=== PATIENT | male | born 1970 | race Caucasian/White ===

== ENCOUNTER 2023-12-29 13:01 | Outpatient (AMB) | payer BC, SELFPAY ==
--- NOTE | 2023-12-29 13:05 | MHC.OFFVIS ---
Vital Signs 12/29/23 13:18 Height 5 ft 9 in Weight 197 lb 8 oz BMI 29.2 BP 128/78 Blood Pressure Location Lt brachial Position Sitting Respiration 16 Pulse 52 Pulse Source Pulse Oximeter Pulse Oximetry (%) 98 Oxygen Delivery Method Room Air Intake Visit Reasons: LOW BACK PAIN WITH RADICULOPATHY Intake Note: Patient comes in for initial visit was referred by primary care. Reports pain 01/27. Allergies codeine Allergy (Verified 12/29/23 13:16) Rash Penicillins Allergy (Verified 12/29/23 13:16) Rash HPI Comments Details: Shivam is very pleasant 53 years old gentleman who presents in my office with complains on pain in the lower back with radiation into the right lower extremity all the way to his ankle but not into his toes. Also reports sensation of pins and needles tingling and numbness in the foot. He reports that this pain started 2 years ago. 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 He can not sleep normally he can not do activities of daily living he can not take care of himself but he can not function normally. He is working full-time. He reports that movements aggravate his pain. The pain is most severe in the afternoon at night. The pain is less severe in the middle of the day. In terms of tissue damage he reports his pain as throbbing, stabbing, sharp, pulling, hot burning, hurting, aching sensation. He never had MRI of the lumbar spine but he had an x-ray not available for me today at [facility]. He did not have physical therapy or chiropractic manipulations. He never had any injections. His past medical history significant for headaches fatigue dizziness and fainting history of intermittent chest pain he said that he was investigated by PCP were for chest pain he reports asthma and shortness of breath. He denies any surgery. He denies smoking cigarettes drinking alcohol denies caffeinated beverages but admits to coffee a day he denies recreational drugs. [facility] Surgical History (Updated 12/29/23 @ 13:25 by Stacie Duncan) S/P right inguinal herniorrhaphy S/P left rotator cuff repair S/P left knee arthroscopy S/P right knee arthroscopy Family History (Updated 12/29/23 @ 13:21 by Stacie Duncan) Father Kidney disease Brother Cancer of skin High cholesterol Social History (Updated 12/29/23 @ 13:21 by Stacie Duncan) Comment: alcohol intake occasional Patient Tobacco Use Status: Never used Tobacco Review of Systems Const Reports as per HPI ENT Reports Normal hearing present Card Reports as per HPI Resp Reports as per HPI GI Reports no additional complaints Reports no additional complaints Musc Reports as per HPI Neuro Reports as per HPI, Reports Normal hearing present, Denies Abnormal speech present and Denies Sensory deficit (Neuro) Physical Exam Vital Signs: Last Vital Signs Pulse 52 12/29/23 13:18 Resp 16 12/29/23 13:18 BP 128/78 12/29/23 13:18 Pulse Ox 98 12/29/23 13:18 Oxygen Delivery Method Room Air 12/29/23 13:18 BMI result Body Mass Index 29.2 Const General: no acute distress and well developed Nutritional Appearance: well nourished Orientation/consciousness: patient oriented x3 Eyes General: appearance normal, both eyes and all related structures Pupils: Equal, round and reactive pupils present EOM: EOMs intact bilaterally Neck Neck: Yes full ROM Chest Chest palpation & inspection: normal inspection of the chest Resp Effort & Inspection: normal respiratory effort, able to speak in complete sentences, normal respiratory pattern, no audible wheezes and no cough Cardio Jugular venous distension: no JVD GI Inspection: Yes normal to inspection Back/Spine/Pelvis Other: He is able to stand on bilateral tiptoes in bilateral heels without difficulty. He has difficulty lifting of the 1st toe on the right in separation from the rest of the toes. Achilles reflexes brisk on the right and dull on the left, the patellar reflexes symmetrical and normal. Denies Valsalva maneuver aggravates his pain. Cam test on the right maybe equivocal. SLR is positive on the right. Pelvic compression test is negative for the pain on the right. Lassegue test is positive on the right. Neuro General: patient oriented x3 and gait normal Cranial nerves: Yes CN's II-XII intact bilaterally, Yes Equal, round and reactive pupils present, Yes Normal hearing present and Yes Ability to bilaterally elevate shoulders present Speech: No Abnormal speech present Gait exam (Neuro): Normal gait present Motor exam (neuro): 5/5 motor strength present throughout Sensory Exam: No Sensory deficit (Neuro) Extrem General: No pedal edema Psych Speech and movement: Normal speech and movement present Affect: normal affect Attitude: cooperative Thought process: Normal thought process present Thought content: Normal thought content present Insight: Good insight present (Psych) Judgement: Good judgement present (Psych) Assessment & Plan Assessment & Plan (1) Radiculopathy, lumbar region: Code(s): M54.16 - Radiculopathy, lumbar region Category: Medical (2) Disc degeneration, lumbar: Code(s): M51.36 - Other intervertebral disc degeneration, lumbar region Category: Medical (3) Chronic pain syndrome: Code(s): G89.4 - Chronic pain syndrome Category: Medical Plan Radiculopathy of the lumbar spine is the 1st thing which comes to my mind after collecting history and examining this patient. I will send him for the MRI of the lumbar spine. After evaluation of the MRI I will see him in the office and we will discuss options of the treatment of the radiculopathy depending on the severity of the MRI findings. Orders: Orders MR lumbar spine wo con Today G89.4 - Chronic pain syndrome, M51.36 - Other intervertebral disc degeneration, lumbar region, M54.16 - Radiculopathy, lumbar region Patient Instructions: I here by testify that I spent 45 minutes in conversation with this patient as well as planning his care ordering appropriate studies and organizing this note. Coding Level of Care Code New Pt Level 4 (98032) Diagnoses Radiculopathy, lumbar region M54.16 Disc degeneration, lumbar M51.36 Chronic pain syndrome G89.4
[2023-12-29 13:18] VITALS: BP 128/78; PULSE 52; RESP 16; O2SAT 98; BMI 29.2
== END 2023-12-29 14:18 | disposition home or self-care (01) ==
PROVIDERS: PCP Nurse Practitioner Family; Referring Provider Nurse Practitioner Family; Visit Provider Anesthesiology
DX: M54.16 Radiculopathy, lumbar region (principal); M51.36 Other intervertebral disc degeneration, lumbar region; G89.4 Chronic pain syndrome
CPT/HCPCS: 99204

== ENCOUNTER → 2023-12-29 13:01 | Outpatient (BNVA) | payer BC, SELFPAY | PROVIDERS: PCP Nurse Practitioner Family; Referring Provider Nurse Practitioner Family; Visit Provider Anesthesiology ==

== ENCOUNTER 2024-01-31 07:26 | Outpatient (REF) | payer BC, SELFPAY ==
--- NOTE | ~2024-01-31 | MR_ITS ---
MRI OF THE LUMBAR SPINE WITHOUT CONTRAST CLINICAL INFORMATION: Chronic pain syndrome. COMPARISON: None available. TECHNIQUE: Multiplanar multisequence MR imaging of the lumbar spine obtained without contrast. FINDINGS: There is transitional anatomy. For the purposes of this report, there are 5 nonrib-bearing lumbar-type vertebral bodies and L5 is sacralized, showing rudimentary disc with S1 and pseudoarticulations with the sacrum bilaterally. Please correlate with plain films prior to any percutaneous or surgical intervention. There is disc desiccation and moderate disc volume loss at L1-L2 and L4-L5. Modic type I endplate signal changes on the right side at L4-L5. No additional bone marrow edema. No acute fractures. Conus terminates at the T12-L1 level. Simple right renal cyst for which no further imaging follow-up is warranted. L1-L2: Diffuse annular disc bulge and mild bilateral facet arthropathy. No central canal stenosis. Mild foraminal encroachment bilaterally. L2-L3: Diffuse annular disc bulge and moderate bilateral facet arthropathy and ligamentum flavum thickening. No central canal stenosis. Mild foraminal encroachment bilaterally. L3-L4: Diffuse annular disc bulge and moderate bilateral facet arthropathy and ligamentum flavum thickening. No central canal stenosis. Mild foraminal encroachment bilaterally. L4-L5: There is grade 1 retrolisthesis. Diffuse annular disc bulge that is in part disc osteophyte and severe bilateral facet arthropathy and ligamentum flavum thickening. Findings in concert result in bilateral subarticular zone stenosis with mild mass effect on the traversing L5 nerve roots bilaterally and the right lateral disc osteophyte protrusion results in moderate right-sided foraminal stenosis, likely contacting the extraforaminal right L4 nerve root. L5-S1: Rudimentary disc. Hypertrophic degenerative changes across the L5-S1 pseudoarticulations contact the overlying extraforaminal nerve roots bilaterally. There is no central canal stenosis. MR/MR lumbar spine wo con IMPRESSION: * There is transitional anatomy. For the purposes of this report, there are 5 nonrib-bearing lumbar-type vertebral bodies and L5 is sacralized, sharing a rudimentary disc with S1 and pseudoarticulations with the sacrum bilaterally. Please correlate with plain films prior to any percutaneous or surgical intervention. * At L4-L5, grade 1 retrolisthesis and multifactorial degenerative changes result in bilateral subarticular zone stenosis with mild mass effect on the traversing L5 nerve roots bilaterally and a right lateral disc osteophyte protrusion results in moderate right-sided foraminal stenosis, likely contacting the extraforaminal right L4 nerve root. Modic type I endplate signal changes at this level on the right side. * At L5-S1, hypertrophic degenerative changes across the L5-S1 pseudoarticulations contact the overlying extraforaminal nerve roots bilaterally. Electronically signed by: Christian Ron MD 02/13/2024 12:51 PM EDT
== END 2024-01-31 07:27 | disposition home or self-care (01) ==
LOC: HO.MRI 07:26
PROVIDERS: PCP Internal Medicine; Visit Provider Anesthesiology
DX: M51.36 Other intervertebral disc degeneration, lumbar region (principal); M54.16 Radiculopathy, lumbar region; G89.4 Chronic pain syndrome
CPT/HCPCS: 72148

== ENCOUNTER 2024-02-21 14:03 | Outpatient (AMB) | payer BC, SELFPAY ==
[2024-02-21 14:17] VITALS: BP 138/75; PULSE 61; O2SAT 98; BMI 28.5
--- NOTE | 2024-02-21 14:17 | A.OFFVIS_ITS ---
Vital Signs 02/21/24 14:17 Height 5 ft 9 in Weight 193 lb BMI 28.5 BP 138/75 Blood Pressure Location Lt brachial Position Sitting Pulse 61 Pulse Source Pulse Oximeter Pulse Oximetry (%) 98 Oxygen Delivery Method Room Air Intake Visit Reasons: MRI results f/u Allergies codeine Allergy (Verified 02/21/24 14:18) Rash Penicillins Allergy (Verified 02/21/24 14:18) Rash Medication List - Last Reconciled 02/21/24 by Merlyn Saha naproxen (EC-Naproxen) 500 mg PO BID PRN HPI Comments Details: Patient presents back to the office today for follow-up, review of recent MRI MRI reviewed, results as per below Patient continues with 7/10 back pain with radiation down the right leg to the level of the ankle. Denies red flag symptoms including new loss of bowel, bladder or saddle anesthesia Has been attending physical therapy without improvement of his symptoms Reports over the weekend he was working in the lawn and exacerbated the pain. Since then it has been more bothersome. Continues with Motrin as needed without improvement of his symptoms Denies new medications, allergies or medical history Prior: Shivam is very pleasant 53 years old gentleman who presents in my office with complains on pain in the lower back with radiation into the right lower extremity all the way to his ankle but not into his toes. Also reports sensation of pins and needles tingling and numbness in the foot. He reports that this pain started 2 years ago. 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 He can not sleep normally he can not do activities of daily living he can not take care of himself but he can not function normally. He is working full-time. He reports that movements aggravate his pain. The pain is most severe in the afternoon at night. The pain is less severe in the middle of the day. In terms of tissue damage he reports his pain as throbbing, stabbing, sharp, pulling, hot burning, hurting, aching sensation. He never had MRI of the lumbar spine but he had an x-ray not available for me today at [facility]. He did not have physical therapy or chiropractic manipulations. He never had any injections. His past medical history significant for headaches fatigue dizziness and fainting history of intermittent chest pain he said that he was investigated by PCP were for chest pain he reports asthma and shortness of breath. He denies any surgery. He denies smoking cigarettes drinking alcohol denies caffeinated beverages but admits to coffee a day he denies recreational drugs. [facility] Surgical History (Updated 12/29/23 @ 13:25 by Stacie Duncan) S/P right inguinal herniorrhaphy S/P left rotator cuff repair S/P left knee arthroscopy S/P right knee arthroscopy Family History (Updated 12/29/23 @ 13:21 by Stacie Duncan) Father Kidney disease Brother Cancer of skin High cholesterol Social History (Updated 12/29/23 @ 13:21 by Stacie Duncan) Comment: alcohol intake occasional Patient Tobacco Use Status: Never used Tobacco Review of Systems Const All systems reviewed & are unremarkable except as noted in HPI and below Physical Exam Vital Signs: Last Vital Signs Pulse 61 02/21/24 14:17 BP 138/75 02/21/24 14:17 Pulse Ox 98 02/21/24 14:17 Oxygen Delivery Method Room Air 02/21/24 14:17 BMI result Body Mass Index 28.5 General: awake, alert, oriented. Answers questions appropriately. Fully engaged in examination. Skin: warm, dry, intact HEENT: Normocephalic. Hearing intact. Cardiac: External chest normal in appearance. Respiratory: No cough, audible wheezing or stridor. Abdomen: without gross distension. MS: No obvious swelling or deformities. Able to stand on bilateral tiptoes and bilateral heels.? Able to transition from sit to stand unassisted. Ambulates with bilaterally normal heel strike and toe off SLR positive on the right Negative footdrop, negative clonus Neurological: Oriented to person, place, time and situation. Thought process intact. No gait abnormalities appreciated. Psychiatric: Appropriate mood and affect. Good judgment and insight. Results Reviewed Results Reviewed: 01/31/24 MRI OF THE LUMBAR SPINE WITHOUT CONTRAST FINDINGS: There is transitional anatomy. For the purposes of this report, there are 5 nonrib-bearing lumbar-type vertebral bodies and L5 is sacralized, showing rudimentary disc with S1 and pseudoarticulations with the sacrum bilaterally. Please correlate with plain films prior to any percutaneous or surgical intervention. There is disc desiccation and moderate disc volume loss at L1-L2 and L4-L5. Modic type I endplate signal changes on the right side at L4-L5. No additional bone marrow edema. No acute fractures. Conus terminates at the T12-L1 level. Simple right renal cyst for which no further imaging follow-up is warranted. L1-L2: Diffuse annular disc bulge and mild bilateral facet arthropathy. No central canal stenosis. Mild foraminal encroachment bilaterally. L2-L3: Diffuse annular disc bulge and moderate bilateral facet arthropathy and ligamentum flavum thickening. No central canal stenosis. Mild foraminal encroachment bilaterally. L3-L4: Diffuse annular disc bulge and moderate bilateral facet arthropathy and ligamentum flavum thickening. No central canal stenosis. Mild foraminal encroachment bilaterally. L4-L5: There is grade 1 retrolisthesis. Diffuse annular disc bulge that is in part disc osteophyte and severe bilateral facet arthropathy and ligamentum flavum thickening. Findings in concert result in bilateral subarticular zone stenosis with mild mass effect on the traversing L5 nerve roots bilaterally and the right lateral disc osteophyte protrusion results in moderate right-sided foraminal stenosis, likely contacting the extraforaminal right L4 nerve root. L5-S1: Rudimentary disc. Hypertrophic degenerative changes across the L5-S1 pseudoarticulations contact the overlying extraforaminal nerve roots bilaterally. There is no central canal stenosis. IMPRESSION: * There is transitional anatomy. For the purposes of this report, there are 5 nonrib-bearing lumbar-type vertebral bodies and L5 is sacralized, sharing a rudimentary disc with S1 and pseudoarticulations with the sacrum bilaterally. Please correlate with plain films prior to any percutaneous or surgical intervention. * At L4-L5, grade 1 retrolisthesis and multifactorial degenerative changes result in bilateral subarticular zone stenosis with mild mass effect on the traversing L5 nerve roots bilaterally and a right lateral disc osteophyte protrusion results in moderate right-sided foraminal stenosis, likely contacting the extraforaminal right L4 nerve root. Modic type I endplate signal changes at this level on the right side. * At L5-S1, hypertrophic degenerative changes across the L5-S1 pseudoarticulations contact the overlying extraforaminal nerve roots bilaterally. Assessment & Plan Assessment & Plan (1) Radiculopathy, lumbar region: Code(s): M54.16 - Radiculopathy, lumbar region Category: Medical (2) Disc degeneration, lumbar: Code(s): M51.36 - Other intervertebral disc degeneration, lumbar region Category: Medical (3) Chronic pain syndrome: Code(s): G89.4 - Chronic pain syndrome Category: Medical Plan Shivam is a very pleasant 53-year-old male who presented to the office today for evaluation management of his right lower back pain History, physical exam and provocative testing consistent with right lumbar radiculopathy. MRI was reviewed, results as per above Patient has exhausted greater than 6 months of conservative therapy including PT, home exercise program, nonsteroidal anti-inflammatory medications, rest Discussed options for treatment including diagnostic interventional testing, epidural steroid injections, peripheral nerve stimulation with Sprint, RFA and more permanent neuromodulation. Will schedule for fluoroscopy guided right L4/L5 transforaminal epidural steroid injection with local anesthetic Will send prednisone burst to help with current exacerbation while waiting for insurance approval New prescription for methocarbamol 500 mg p.o. t.i.d. sent. Patient advised on cautions for use. All questions and concerns have been answered and patient agrees with the plan. Follow up after injections, sooner if needed. Medications: New methocarbamol No driving while taking this medication. Do no take with alcohol or other NEIGHBORHOOD AIDE Depressants 500 mg PO TID PRN 90 tabs 1RF muscle spasm prednisone 40 mg (2 x 20 mg) PO DAILY 12 tabs 0RF Coding Level of Care Code Est Pt Level 4 (30981) Complex EM visit Add On G2211 Diagnoses Radiculopathy, lumbar region M54.16 Disc degeneration, lumbar M51.36 Chronic pain syndrome G89.4
== END 2024-02-21 14:59 | disposition home or self-care (01) ==
PROVIDERS: PCP Internal Medicine; Visit Provider Registered Nurse Emergency
DX: M54.16 Radiculopathy, lumbar region (principal); M51.36 Other intervertebral disc degeneration, lumbar region; G89.4 Chronic pain syndrome
CPT/HCPCS: 99214

== ENCOUNTER → 2024-02-21 14:03 | Outpatient (BNVA) | payer BC, SELFPAY | PROVIDERS: PCP Internal Medicine; Visit Provider Registered Nurse Emergency ==

== ENCOUNTER 2024-04-10 06:03 | Outpatient (REF) | payer BC, SELFPAY | END 2024-04-10 06:04 | disposition home or self-care (01) | LOC: CF 06:03 | PROVIDERS: Visit Provider Anesthesiology | DX: M54.16 Radiculopathy, lumbar region (principal); G89.4 Chronic pain syndrome | CPT/HCPCS: 64483; 64484; J2003; J3301; Q9967 ==

== ENCOUNTER 2024-04-10 07:10 | Outpatient (AMB) | payer BC, SELFPAY ==
[2024-04-10 07:18] VITALS: BP 128/78; PULSE 63; O2SAT 98; BMI 28.8
--- NOTE | 2024-04-10 07:18 | A.OFFVIS_ITS ---
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 Accompanied by: Self / Same As Patient Allergies codeine Allergy (Verified 04/10/24 07:33) Rash Penicillins Allergy (Verified 04/10/24 07:33) Rash PFSH Surgical History (Updated 12/29/23 @ 13:25 by Stacie Duncan) S/P right inguinal herniorrhaphy S/P left rotator cuff repair S/P left knee arthroscopy S/P right knee arthroscopy Family History (Updated 12/29/23 @ 13:21 by Stacie Duncan) Father Kidney disease Brother Cancer of skin High cholesterol Social History (Updated 12/29/23 @ 13:21 by Stacie Duncan) Comment: alcohol intake occasional Patient Tobacco Use Status: Never used Tobacco Physical Exam Vital Signs: Last Vital Signs Pulse 58 04/10/24 08:11 Resp 16 04/10/24 08:11 BP 125/70 04/10/24 08:11 Pulse Ox 99 04/10/24 08:11 Oxygen Delivery Method Room Air 04/10/24 08:11 BMI result Body Mass Index 28.8 Results Reviewed Results Reviewed: 01/31/24 MRI OF THE LUMBAR SPINE WITHOUT CONTRAST FINDINGS: There is transitional anatomy. For the purposes of this report, there are 5 nonrib-bearing lumbar-type vertebral bodies and L5 is sacralized, showing rudimentary disc with S1 and pseudoarticulations with the sacrum bilaterally. Please correlate with plain films prior to any percutaneous or surgical intervention. There is disc desiccation and moderate disc volume loss at L1-L2 and L4-L5. Modic type I endplate signal changes on the right side at L4-L5. No additional bone marrow edema. No acute fractures. Conus terminates at the T12-L1 level. Simple right renal cyst for which no further imaging follow-up is warranted. L1-L2: Diffuse annular disc bulge and mild bilateral facet arthropathy. No central canal stenosis. Mild foraminal encroachment bilaterally. L2-L3: Diffuse annular disc bulge and moderate bilateral facet arthropathy and ligamentum flavum thickening. No central canal stenosis. Mild foraminal encroachment bilaterally. L3-L4: Diffuse annular disc bulge and moderate bilateral facet arthropathy and ligamentum flavum thickening. No central canal stenosis. Mild foraminal encroachment bilaterally. L4-L5: There is grade 1 retrolisthesis. Diffuse annular disc bulge that is in part disc osteophyte and severe bilateral facet arthropathy and ligamentum flavum thickening. Findings in concert result in bilateral subarticular zone stenosis with mild mass effect on the traversing L5 nerve roots bilaterally and the right lateral disc osteophyte protrusion results in moderate right-sided foraminal stenosis, likely contacting the extraforaminal right L4 nerve root. L5-S1: Rudimentary disc. Hypertrophic degenerative changes across the L5-S1 pseudoarticulations contact the overlying extraforaminal nerve roots bilaterally. There is no central canal stenosis. IMPRESSION: * There is transitional anatomy. For the purposes of this report, there are 5 nonrib-bearing lumbar-type vertebral bodies and L5 is sacralized, sharing a rudimentary disc with S1 and pseudoarticulations with the sacrum bilaterally. Please correlate with plain films prior to any percutaneous or surgical intervention. * At L4-L5, grade 1 retrolisthesis and multifactorial degenerative changes result in bilateral subarticular zone stenosis with mild mass effect on the traversing L5 nerve roots bilaterally and a right lateral disc osteophyte protrusion results in moderate right-sided foraminal stenosis, likely contacting the extraforaminal right L4 nerve root. Modic type I endplate signal changes at this level on the right side. * At L5-S1, hypertrophic degenerative changes across the L5-S1 pseudoarticulations contact the overlying extraforaminal nerve roots bilaterally. Assessment & Plan Assessment & Plan (1) Radiculopathy, lumbar region: Code(s): M54.16 - Radiculopathy, lumbar region Category: Medical (2) Disc degeneration, lumbar: Code(s): M51.36 - Other intervertebral disc degeneration, lumbar region Category: Medical (3) Chronic pain syndrome: Code(s): G89.4 - Chronic pain syndrome Category: Medical Plan: Transforaminal right L4-5 epidural steroid injection Informed consent was thoroughly explained to the patient before the procedure.? The patient came to the operating room.? He was positioned prone on operating table with a pillow under his abdomen.? Time-out was performed delineating correct site and side of the procedure, nature of the injection, name and date of of the patient. The lower back of the patient was prepped with ChloraPrep and draped with sterile utility towels.? C-arm was brought over the operating field, transitional anatomy was noted, the L4 vertebra was located county down from the 1st [id number] vertebra, and after the sq picture of L4 vertebra was demonstrated on the screen.? The right side was chosen as the side of the injection.? Tilting machine ipsilateral to the right at the level of L4 the most prominent picture of the left pedicle was obtained on the screen.? 3 mm below the level of the lowest point of the pedicle projection to the skin small amount of lidocaine 1% 3-4 cc was injected to anesthetize the skin.? After that 5 in 22 gauge Quincke point needle was inserted through the skin wheal and was advanced to were the L4-5 foramina on anterior posterior , lateral and oblique views intermittently.? When needle entered foramina injection of the contrast performed demonstrating epidural and perineural spread of the contrast. No intrathecal and no intravascular spread of the contrast was noted on the screen. No intravascular nor intrathecal spread of the contrast was noted. After that preservative-free lidocaine 1% 3 mL mixed with Kenalog 40 mg was injected into the needle. Upon completion of the injection needle was withdrawn sterile Band- Aids were applied Patient tolerated procedure well he was taken outside of the operating room where he recovered uneventfully.? Plan Shivam is a very pleasant 53-year-old male who presented to the office today for evaluation management of his right lower back pain History, physical exam and provocative testing consistent with right lumbar radiculopathy. MRI was reviewed, results as per above Patient has exhausted greater than 6 months of conservative therapy including PT, home exercise program, nonsteroidal anti-inflammatory medications, rest Discussed options for treatment including diagnostic interventional testing, epidural steroid injections, peripheral nerve stimulation with Sprint, RFA and more permanent neuromodulation. Will schedule for fluoroscopy guided right L4/L5 transforaminal epidural steroid injection with local anesthetic Will send prednisone burst to help with current exacerbation while waiting for insurance approval New prescription for methocarbamol 500 mg p.o. t.i.d. sent. Patient advised on cautions for use. All questions and concerns have been answered and patient agrees with the plan. Follow up after injections, sooner if needed. Orders: Orders FL guidance in treatment room Today M54.16 - Radiculopathy, lumbar region Coding Level of Care Code Procedure Only Diagnoses Radiculopathy, lumbar region M54.16 Disc degeneration, lumbar M51.36 Chronic pain syndrome G89.4
[2024-04-10 08:11] VITALS: BP 125/70; PULSE 58; RESP 16; O2SAT 99
== END 2024-04-10 08:04 | disposition home or self-care (01) ==
LOC: HO.PMCPRC 07:10
PROVIDERS: PCP Internal Medicine; Visit Provider Anesthesiology
DX: M54.16 Radiculopathy, lumbar region (principal); M51.369 Other intervertebral disc degeneration, lumbar region without mention of lumbar back pain or lower extremity pain; G89.4 Chronic pain syndrome
CPT/HCPCS: 64483; 64484

== ENCOUNTER 2024-05-04 12:48 | Outpatient (REF) | payer BC, SELFPAY | END 2024-05-04 12:49 | disposition home or self-care (01) | LOC: HO.XRAY 12:48 | PROVIDERS: PCP Internal Medicine; Visit Provider Registered Nurse Emergency | DX: M51.360 Other intervertebral disc degeneration, lumbar region with discogenic back pain only (principal); M54.16 Radiculopathy, lumbar region | CPT/HCPCS: 72114 ==

== ENCOUNTER 2024-05-04 12:48 | Outpatient (AMB) | payer BC, SELFPAY ==
[2024-05-04 13:06] VITALS: BP 133/80; PULSE 66; O2SAT 98; BMI 28.8
--- NOTE | 2024-05-04 13:06 | MHC.OFFVIS ---
Vital Signs 05/04/24 13:06 Height 5 ft 9 in Weight 195 lb BMI 28.8 BP 133/80 Blood Pressure Location Lt brachial Position Sitting Pulse 66 Pulse Source Pulse Oximeter Pulse Oximetry (%) 98 Oxygen Delivery Method Room Air Intake Visit Reasons: RIGHT L4, L5 TFESI Allergies codeine Allergy (Verified 05/04/24 13:06) Rash Penicillins Allergy (Verified 05/04/24 13:06) Rash Medication List - Last Reconciled 05/04/24 by Merlyn Saha methocarbamol 500 mg PO TID PRN naproxen (EC-Naproxen) 500 mg PO BID PRN HPI Comments Details: Patient presents back to the office today for follow-up, 1 month status post right L4-5 transforaminal epidural steroid injection He reports 30% improvement in pain, functional mobility since the injection. States no longer having discomfort in his right ankle/Achilles. Continues with right lower back pain radiating down to the calf. Endorses continued tightness in the right hamstring. Taking naproxen and methocarbamol with minimal improvement Pain today is rated as a 6/10 Prior: Patient presents back to the office today for follow-up, review of recent MRI MRI reviewed, results as per below Patient continues with 7/10 back pain with radiation down the right leg to the level of the ankle. Denies red flag symptoms including new loss of bowel, bladder or saddle anesthesia Has been attending physical therapy without improvement of his symptoms Reports over the weekend he was working in the lawn and exacerbated the pain. Since then it has been more bothersome. Continues with Motrin as needed without improvement of his symptoms Denies new medications, allergies or medical history Prior: Shivam is very pleasant 53 years old gentleman who presents in my office with complains on pain in the lower back with radiation into the right lower extremity all the way to his ankle but not into his toes. Also reports sensation of pins and needles tingling and numbness in the foot. He reports that this pain started 2 years ago. 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 man. He can not sleep normally he can not do activities of daily living he can not take care of himself but he can not function normally. He is working full-time. He reports that movements aggravate his pain. The pain is most severe in the afternoon at night. The pain is less severe in the middle of the day. In terms of tissue damage he reports his pain as throbbing, stabbing, sharp, pulling, hot burning, hurting, aching sensation. He never had MRI of the lumbar spine but he had an x-ray not available for me today at [facility]. He did not have physical therapy or chiropractic manipulations. He never had any injections. His past medical history significant for headaches fatigue dizziness and fainting history of intermittent chest pain he said that he was investigated by PCP were for chest pain he reports asthma and shortness of breath. He denies any surgery. He denies smoking cigarettes drinking alcohol denies caffeinated beverages but admits to coffee a day he denies recreational drugs. [facility] Surgical History (Updated 12/29/23 @ 13:25 by Stacie Duncan) S/P right inguinal herniorrhaphy S/P left rotator cuff repair S/P left knee arthroscopy S/P right knee arthroscopy Family History (Updated 12/29/23 @ 13:21 by Stacie Duncan) Father Kidney disease Brother Cancer of skin High cholesterol Social History (Updated 12/29/23 @ 13:21 by Stacie Duncan) Comment: alcohol intake occasional Patient Tobacco Use Status: Never used Tobacco Review of Systems Const All systems reviewed & are unremarkable except as noted in HPI and below Physical Exam Vital Signs: Last Vital Signs Pulse 66 05/04/24 13:06 BP 133/80 05/04/24 13:06 Pulse Ox 98 05/04/24 13:06 Oxygen Delivery Method Room Air 05/04/24 13:06 BMI result Body Mass Index 28.8 General: awake, alert, oriented. Answers questions appropriately. Fully engaged in examination. Skin: warm, dry, intact HEENT: Normocephalic. Hearing intact. Cardiac: External chest normal in appearance. Respiratory: No cough, audible wheezing or stridor. Abdomen: without gross distension. MS: No obvious swelling or deformities. Able to stand on bilateral tiptoes and bilateral heels.? Able to transition from sit to stand unassisted. Ambulates with bilaterally normal heel strike and toe off SLR positive on the right. Negative footdrop, negative clonus Tenderness over right lumbar vertebrae and paraspinal muscles. Nontender over PSIS No pain with internal/external rotation of the right hip Neurological: Oriented to person, place, time and situation. Thought process intact. No gait abnormalities appreciated. Psychiatric: Appropriate mood and affect. Good judgment and insight. Results Reviewed Results Reviewed: 01/31/24 MRI OF THE LUMBAR SPINE WITHOUT CONTRAST FINDINGS: There is transitional anatomy. For the purposes of this report, there are 5 nonrib-bearing lumbar-type vertebral bodies and L5 is sacralized, showing rudimentary disc with S1 and pseudoarticulations with the sacrum bilaterally. Please correlate with plain films prior to any percutaneous or surgical intervention. There is disc desiccation and moderate disc volume loss at L1-L2 and L4-L5. Modic type I endplate signal changes on the right side at L4-L5. No additional bone marrow edema. No acute fractures. Conus terminates at the T12-L1 level. Simple right renal cyst for which no further imaging follow-up is warranted. L1-L2: Diffuse annular disc bulge and mild bilateral facet arthropathy. No central canal stenosis. Mild foraminal encroachment bilaterally. L2-L3: Diffuse annular disc bulge and moderate bilateral facet arthropathy and ligamentum flavum thickening. No central canal stenosis. Mild foraminal encroachment bilaterally. L3-L4: Diffuse annular disc bulge and moderate bilateral facet arthropathy and ligamentum flavum thickening. No central canal stenosis. Mild foraminal encroachment bilaterally. L4-L5: There is grade 1 retrolisthesis. Diffuse annular disc bulge that is in part disc osteophyte and severe bilateral facet arthropathy and ligamentum flavum thickening. Findings in concert result in bilateral subarticular zone stenosis with mild mass effect on the traversing L5 nerve roots bilaterally and the right lateral disc osteophyte protrusion results in moderate right-sided foraminal stenosis, likely contacting the extraforaminal right L4 nerve root. L5-S1: Rudimentary disc. Hypertrophic degenerative changes across the L5-S1 pseudoarticulations contact the overlying extraforaminal nerve roots bilaterally. There is no central canal stenosis. IMPRESSION: * There is transitional anatomy. For the purposes of this report, there are 5 nonrib-bearing lumbar-type vertebral bodies and L5 is sacralized, sharing a rudimentary disc with S1 and pseudoarticulations with the sacrum bilaterally. Please correlate with plain films prior to any percutaneous or surgical intervention. * At L4-L5, grade 1 retrolisthesis and multifactorial degenerative changes result in bilateral subarticular zone stenosis with mild mass effect on the traversing L5 nerve roots bilaterally and a right lateral disc osteophyte protrusion results in moderate right-sided foraminal stenosis, likely contacting the extraforaminal right L4 nerve root. Modic type I endplate signal changes at this level on the right side. * At L5-S1, hypertrophic degenerative changes across the L5-S1 pseudoarticulations contact the overlying extraforaminal nerve roots bilaterally. Assessment & Plan Assessment & Plan (1) Disc degeneration, lumbar: Code(s): M51.36 - Other intervertebral disc degeneration, lumbar region Category: Medical (2) Radiculopathy, lumbar region: Code(s): M54.16 - Radiculopathy, lumbar region Category: Medical (3) Chronic pain syndrome: Code(s): G89.4 - Chronic pain syndrome Category: Medical Plan Patient presents back to the office today for follow-up, 1 month status post right L4-5 transforaminal epidural steroid injection He reports 30% improvement in symptoms and pain after the injection X-ray lumbar spine with bending views ordered. Referral placed for neurosurgery evaluation. Continue with naproxen and methocarbamol as prescribed. Patient declined refills today, will reach out to the office when needed. All questions and concerns have been answered and patient agrees with the plan. Follow up after neurosurgical evaluation, sooner if needed. Orders: Orders XR lumbar spine 6V w bending Today M51.36 - Other intervertebral disc degeneration, lumbar region, M54.16 - Radiculopathy, lumbar region Referrals Neuro Spine Referral M51.36 - Other intervertebral disc degeneration, lumbar region, M54.16 - Radiculopathy, lumbar region Coding Level of Care Code Est Pt Level 3 (61819) Complex EM visit Add On G2211 Diagnoses Disc degeneration, lumbar M51.36 Radiculopathy, lumbar region M54.16 Chronic pain syndrome G89.4
== END 2024-05-04 13:22 | disposition home or self-care (01) ==
PROVIDERS: PCP Internal Medicine; Visit Provider Registered Nurse Emergency
DX: M51.369 Other intervertebral disc degeneration, lumbar region without mention of lumbar back pain or lower extremity pain (principal); M54.16 Radiculopathy, lumbar region; G89.4 Chronic pain syndrome
CPT/HCPCS: 99213

== ENCOUNTER 2024-05-21 10:48 | Outpatient (AMB) | payer BC, SELFPAY ==
--- NOTE | 2024-05-21 10:51 | HO.SPINEOV ---
Vital Signs 05/21/24 10:59 Height 5 ft 8 in Weight 190 lb BMI 28.9 Intake Visit Reasons: LBP Intake Note: Mr. Church is here today c/o Low back pain. Vp Delivery Required: No Allergies codeine Allergy (Verified 05/04/24 13:06) Rash Penicillins Allergy (Verified 05/04/24 13:06) Rash Physical Exam Vital Signs: BMI result Body Mass Index 28.9 Assessment & Plan Assessment & Plan (1) Spondylolisthesis: Code(s): M43.10 - Spondylolisthesis, site unspecified Category: Medical Plan Dear VIRGINIA Haynes, Thank you for referring Shivam to our office today. 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 He states that his low back pain is much worse than his right leg pain. He reports that he has had low back pain for the last 2 years, and denies any known inciting incident. His right leg pain is newer, occurring roughly 8 months ago, also without any inciting incident. When describing his right leg pain he runs his hand over the posterior aspect of his buttocks, down his posterior thigh, then into the posterior calf. He reports some numbness and tingling over his posterior right hip. He reports that his pain is worse with sitting and lying down, but is relieved by standing and walking. He has attempted physical therapy for this pain, has had L4-5 epidural steroid injections completed by our colleagues in pain management for this pain. He has also attempted [id number] remedies including Tylenol, naproxen, and pain gel/creams. He is currently taking naproxen and muscle relaxers in an effort to mitigate the pain. Social hx: The patient does not smoke, reports no substance use. Medications: Methocarbamol, naproxen. Allergies: Codeine, penicillin. Physical exam: The patient has 5/5 strength in his upper and lower extremities. His reflexes are 2+ intact. He has no significant sensational deficits on exam. He ambulates well and rises from a seated position without difficulty. No issues getting up onto the exam table. Nonantalgic gait. (-) bilateral straight leg raise, (-) Thomas's, (-) clonus. Imaging review: MRI of the lumbar spine completed here at [facility] shows a slight grade 1 spondylolisthesis at what we would refer to as L5-S1 (I believe is referred to as L4-5 in the radiology report, however it appears that part of the sacrum just has a slightly larger disc than normal). This slight listhesis appears to be causing bilateral foraminal stenosis that is moderate-severe nature. This is accompanied by disc degeneration at this level. Flexion/extension x-rays do not appear to show any worsening instability. Impression: Shivam is a pleasant 53-year-old male who comes in today with a chief complaint of low back pain and shooting pains down his right lower extremity in a classic S1 distribution. He has a slight listhesis that appears worse with lying flat (on MRI) than it does with standing (x-rays). This would correlate well with his disclosed pain symptoms based on positional changes. We discussed the possible surgical interventions that could be undertaken in order to correct this listhesis and nerve compression. He does not feel he is at the point where his pain is severe enough to warrant surgery. I agreed with him and I advised him to continue following up with our colleagues in pain management for a subsequent injections. He is welcome to make a follow-up appointment with our office in the future if his pain worsens or does not respond well to injections to discuss surgical intervention. Thank you for allowing us to care for your patient. The total time spent with this visit with this patient was 45 minutes reviewing history, physical exam, MRI imaging review, and implementation of treatment plan or further diagnostic testing. James Mcgee MD,PhD [facility] Coding Level of Care Code New Pt Level 4 (32570) Diagnoses Spondylolisthesis M43.10
[2024-05-21 10:59] VITALS: BMI 28.9
== END 2024-05-21 11:36 | disposition home or self-care (01) ==
PROVIDERS: PCP Internal Medicine; Referring Provider Registered Nurse Emergency; Visit Provider Physician Assistant
DX: M43.10 Spondylolisthesis, site unspecified (principal)
CPT/HCPCS: 99204

== ENCOUNTER → 2024-05-21 10:48 | Outpatient (BNVA) | payer BC, SELFPAY | PROVIDERS: PCP Internal Medicine; Referring Provider Registered Nurse Emergency; Visit Provider Physician Assistant ==

== ENCOUNTER 2024-05-31 12:53 | Outpatient (AMB) | payer BC, SELFPAY ==
--- NOTE | 2024-05-31 13:02 | A.OFFVIS_ITS ---
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 Recently evaluated by neuro spine, visit note was reviewed. They discussed surgery but ultimately decided that now was not the right time. He was referred back here for repeat L4-5 epidural steroid injection. He continues with right lower back pain with radiation down the right leg to the ankle. Pain today is rated as a 7/10, constant and worse with activity Has been taking naproxen with some relief. Reports methocarbamol has been giving him nightmares so he stopped taking it. Prior: Patient presents back to the office today for follow-up, 1 month status post right L4-5 transforaminal epidural steroid injection He reports 30% improvement in pain, functional mobility since the injection. States no longer having discomfort in his right ankle/Achilles. Continues with right lower back pain radiating down to the calf. Endorses continued tightness in the right hamstring. Taking naproxen and methocarbamol with minimal improvement Pain today is rated as a 6/10 Prior: Patient presents back to the office today for follow-up, review of recent MRI MRI reviewed, results as per below Patient continues with 7/10 back pain with radiation down the right leg to the level of the ankle. Denies red flag symptoms including new loss of bowel, bladder or saddle anesthesia Has been attending physical therapy without improvement of his symptoms Reports over the weekend he was working in the lawn and exacerbated the pain. Since then it has been more bothersome. Continues with Motrin as needed without improvement of his symptoms Denies new medications, allergies or medical history Prior: Shivam is very pleasant 53 years old gentleman who presents in my office with complains on pain in the lower back with radiation into the right lower extremity all the way to his ankle but not into his toes. Also reports sensation of pins and needles tingling and numbness in the foot. He reports that this pain started 2 years ago. 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 He can not sleep normally he can not do activities of daily living he can not take care of himself but he can not function normally. He is working full-time. He reports that movements aggravate his pain. The pain is most severe in the afternoon at night. The pain is less severe in the middle of the day. In terms of tissue damage he reports his pain as throbbing, stabbing, sharp, pulling, hot burning, hurting, aching sensation. He never had MRI of the lumbar spine but he had an x-ray not available for me today at [facility]. He did not have physical therapy or chiropractic manipulations. He never had any injections. His past medical history significant for headaches fatigue dizziness and fainting history of intermittent chest pain he said that he was investigated by PCP were for chest pain he reports asthma and shortness of breath. He denies any surgery. He denies smoking cigarettes drinking alcohol denies caffeinated beverages but admits to coffee a day he denies recreational drugs. [facility] Surgical History (Updated 12/29/23 @ 13:25 by Stacie Duncan) S/P right inguinal herniorrhaphy S/P left rotator cuff repair S/P left knee arthroscopy S/P right knee arthroscopy Family History (Updated 12/29/23 @ 13:21 by Stacie Duncan) Father Kidney disease Brother Cancer of skin High cholesterol Social History (Updated 12/29/23 @ 13:21 by Stacie Duncan) Comment: alcohol intake occasional Patient Tobacco Use Status: Never used Tobacco Review of Systems Const All systems reviewed & are unremarkable except as noted in HPI and below Physical Exam Vital Signs: Last Vital Signs Pulse 51 05/31/24 13:05 BP 134/80 05/31/24 13:05 Pulse Ox 100 05/31/24 13:05 Oxygen Delivery Method Room Air 05/31/24 13:05 BMI result Body Mass Index 29.8 General: awake, alert, oriented. Answers questions appropriately. Fully engaged in examination. Skin: warm, dry, intact HEENT: Normocephalic. Hearing intact. Cardiac: External chest normal in appearance. Respiratory: No cough, audible wheezing or stridor. Abdomen: without gross distension. MS: No obvious swelling or deformities. Able to transition from sit to stand unassisted. Ambulates with bilaterally normal heel strike and toe off SLR positive on the right. Negative footdrop, negative clonus Tenderness over right lumbar vertebrae and paraspinal muscles. Neurological: Oriented to person, place, time and situation. Thought process intact. No gait abnormalities appreciated. Psychiatric: Appropriate mood and affect. Good judgment and insight. Results Reviewed Results Reviewed: 01/31/24 MRI OF THE LUMBAR SPINE WITHOUT CONTRAST FINDINGS: There is transitional anatomy. For the purposes of this report, there are 5 nonrib-bearing lumbar-type vertebral bodies and L5 is sacralized, showing rudimentary disc with S1 and pseudoarticulations with the sacrum bilaterally. Please correlate with plain films prior to any percutaneous or surgical intervention. There is disc desiccation and moderate disc volume loss at L1-L2 and L4-L5. Modic type I endplate signal changes on the right side at L4-L5. No additional bone marrow edema. No acute fractures. Conus terminates at the T12-L1 level. Simple right renal cyst for which no further imaging follow-up is warranted. L1-L2: Diffuse annular disc bulge and mild bilateral facet arthropathy. No central canal stenosis. Mild foraminal encroachment bilaterally. L2-L3: Diffuse annular disc bulge and moderate bilateral facet arthropathy and ligamentum flavum thickening. No central canal stenosis. Mild foraminal encroachment bilaterally. L3-L4: Diffuse annular disc bulge and moderate bilateral facet arthropathy and ligamentum flavum thickening. No central canal stenosis. Mild foraminal encroachment bilaterally. L4-L5: There is grade 1 retrolisthesis. Diffuse annular disc bulge that is in part disc osteophyte and severe bilateral facet arthropathy and ligamentum flavum thickening. Findings in concert result in bilateral subarticular zone stenosis with mild mass effect on the traversing L5 nerve roots bilaterally and the right lateral disc osteophyte protrusion results in moderate right-sided foraminal stenosis, likely contacting the extraforaminal right L4 nerve root. L5-S1: Rudimentary disc. Hypertrophic degenerative changes across the L5-S1 pseudoarticulations contact the overlying extraforaminal nerve roots bilaterally. There is no central canal stenosis. IMPRESSION: * There is transitional anatomy. For the purposes of this report, there are 5 nonrib-bearing lumbar-type vertebral bodies and L5 is sacralized, sharing a rudimentary disc with S1 and pseudoarticulations with the sacrum bilaterally. Please correlate with plain films prior to any percutaneous or surgical intervention. * At L4-L5, grade 1 retrolisthesis and multifactorial degenerative changes result in bilateral subarticular zone stenosis with mild mass effect on the traversing L5 nerve roots bilaterally and a right lateral disc osteophyte protrusion results in moderate right-sided foraminal stenosis, likely contacting the extraforaminal right L4 nerve root. Modic type I endplate signal changes at this level on the right side. * At L5-S1, hypertrophic degenerative changes across the L5-S1 pseudoarticulations contact the overlying extraforaminal nerve roots bilaterally. Assessment & Plan Assessment & Plan (1) Disc degeneration, lumbar: Code(s): M51.36 - Other intervertebral disc degeneration, lumbar region Category: Medical (2) Radiculopathy, lumbar region: Code(s): M54.16 - Radiculopathy, lumbar region Category: Medical (3) Chronic pain syndrome: Code(s): G89.4 - Chronic pain syndrome Category: Medical Plan Patient presents back to the office today for follow-up right lower back pain Evaluated recently by Neurospine who referred patient back here for repeat L4-5 TFESI. Continue with naproxen as prescribed Discontinue methocarbamol due to reported side effects New prescription for gabapentin 100 mg p.o. 3 times daily. Patient advised on cautions for use. Will schedule for fluoroscopy guided right L4-5 transforaminal epidural steroid injection with local anesthetic. All questions and concerns have been answered and patient agrees with the plan. Follow up after injection, sooner if needed. Medications: New gabapentin May cause drowsiness, no driving while taking this medication. 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 100 mg PO TID 90 caps 3RF Discontinued methocarbamol No driving while taking this medication. Do no take with alcohol or other ASSOCIATE PROF[employer]OR [employer] MUSIC Depressants Discontinued Reason: Doctor's Order 500 mg PO TID PRN 90 tabs 1RF muscle spasm Coding Level of Care Code Est Pt Level 3 (09021) Complex EM visit Add On G2211 Diagnoses Disc degeneration, lumbar M51.36 Radiculopathy, lumbar region M54.16 Chronic pain syndrome G89.4
[2024-05-31 13:05] VITALS: BP 134/80; PULSE 51; O2SAT 100; BMI 29.8
== END 2024-05-31 14:01 | disposition home or self-care (01) ==
PROVIDERS: PCP Internal Medicine; Visit Provider Registered Nurse Emergency
DX: M51.369 Other intervertebral disc degeneration, lumbar region without mention of lumbar back pain or lower extremity pain (principal); M54.16 Radiculopathy, lumbar region; G89.4 Chronic pain syndrome
CPT/HCPCS: 99213

== ENCOUNTER 2024-08-14 06:31 | Outpatient (REF) | payer BC, SELFPAY ==
--- NOTE | ~2024-08-14 | FL_ITS ---
EXAMINATION: FL GUIDANCE ONLY HISTORY: M54.16 - Radiculopathy, lumbar region COMPARISON: None available. TECHNIQUE: Fluoroscopy time: 0.2 minutes. Cumulative Dose: 2.76 mGy. DAP: 0.0480 mGym2 Images: 2. FINDINGS: Images demonstrate a needle and contrast material in the region of the right L4-5 facet joint. FL/FL guidance in treatment room IMPRESSION: Fluoroscopy during procedure. Please see procedure report for additional information. Electronically signed by: Octaviano Franco MD 08/14/2024 02:09 PM [facility]
== END 2024-08-14 06:32 | disposition home or self-care (01) ==
LOC: CF 06:31
PROVIDERS: Visit Provider Anesthesiology
DX: M47.816 Spondylosis without myelopathy or radiculopathy, lumbar region (principal); M51.16 Intervertebral disc disorders with radiculopathy, lumbar region; G89.4 Chronic pain syndrome
CPT/HCPCS: 64483; 64484; 64493; 64494; J2003; J3301; Q9967

== ENCOUNTER 2024-08-14 10:55 | Outpatient (AMB) | payer BC, SELFPAY ==
--- NOTE | 2024-08-14 11:22 | MHC.OFFVIS ---
Vital Signs 08/14/24 11:23 08/14/24 12:12 BP 118/66 123/75 Blood Pressure Location Lt brachial Lt brachial Position Sitting Sitting Pulse 63 58 Pulse Source Pulse Oximeter Pulse Oximeter Pulse Oximetry (%) 97 98 Oxygen Delivery Method Room Air Room Air Comment Pre-Op Post-Op Intake Visit Reasons: RIGHT L4, L5 TFESI Allergies codeine Allergy (Verified 05/31/24 13:05) Rash Penicillins Allergy (Verified 05/31/24 13:05) Rash PFSH Surgical History (Updated 12/29/23 @ 13:25 by Stacie Duncan) S/P right inguinal herniorrhaphy S/P left rotator cuff repair S/P left knee arthroscopy S/P right knee arthroscopy Family History (Updated 12/29/23 @ 13:21 by Stacie Duncan) Father Kidney disease Brother Cancer of skin High cholesterol Social History (Updated 12/29/23 @ 13:21 by Stacie Duncan) Comment: alcohol intake occasional Patient Tobacco Use Status: Never used Tobacco Physical Exam Vital Signs: Last Vital Signs Pulse 63 08/14/24 11:23 BP 118/66 08/14/24 11:23 Pulse Ox 97 08/14/24 11:23 Oxygen Delivery Method Room Air 08/14/24 11:23 Assessment & Plan Assessment & Plan (1) Radiculopathy, lumbar region: Code(s): M54.16 - Radiculopathy, lumbar region Category: Medical (2) Disc degeneration, lumbar: Code(s): M51.36 - Other intervertebral disc degeneration, lumbar region Category: Medical (3) Chronic pain syndrome: Code(s): G89.4 - Chronic pain syndrome Category: Medical Plan Diagnostic right medial branch block L2, L3, L4, dorsal ramus L5. Informed consent was thoroughly explained to the patient before the procedure.? The patient came to the operating room.? He was positioned prone on operating table with a pillow under her abdomen.? Time-out was performed delineating correct site and side of the procedure, nature of the injection, name and date of of the patient. The lower back and upper buttocks of the patient was prepped with ChloraPrep and draped with sterile utility towels.? C-arm was brought over the operating field and the point of interest were delineated as confluence of the superior articular process of L3, L4 vertebra and L5 vertebra on the right with corresponding transverse process on the right, as well as confluence of the superior articular process of S1 on the right with sacral ala on the right. The point of interest projection to the skin was injected with small amount of mixture of lidocaine 2% and ropivacaine 0.5%. After that 22 gauge 3-1/2 inch needle was driven to point of interest in tunnel vision fashion. When needle gently contacted the bone injection of the contrast was performed delineating no intravascular and no intrathecal spread of the contrast. After that injection of the small amount of ropivacaine 0.5% less than 1 cc into each target site was performed. Upon completion of the injections the needle was removed sterile Band-Aids were applied. The patient tolerated procedure well. He was given a pain diary to complete after the procedure. Orders: Orders FL guidance in treatment room Today M54.16 - Radiculopathy, lumbar region Coding Level of Care Code Procedure Only Diagnoses Radiculopathy, lumbar region M54.16 Disc degeneration, lumbar M51.36 Chronic pain syndrome G89.4
[2024-08-14 11:23] VITALS: BP 118/66; PULSE 63; O2SAT 97
[2024-08-14 12:12] VITALS: BP 123/75; PULSE 58; O2SAT 98
== END 2024-08-14 12:14 | disposition home or self-care (01) ==
LOC: HO.PMCPRC 10:55
PROVIDERS: PCP Internal Medicine; Visit Provider Anesthesiology
DX: M54.16 Radiculopathy, lumbar region (principal); M51.369 Other intervertebral disc degeneration, lumbar region without mention of lumbar back pain or lower extremity pain; G89.4 Chronic pain syndrome
CPT/HCPCS: 64483; 64484

== ENCOUNTER 2024-09-19 14:02 | Outpatient (AMB) | payer BC, SELFPAY ==
[2024-09-19 14:08] VITALS: BP 108/74; PULSE 63; O2SAT 97; BMI 29.5
--- NOTE | 2024-09-19 14:08 | MHC.OFFVIS ---
Vital Signs 09/19/24 14:08 Height 5 ft 9 in Weight 200 lb BMI 29.5 BP 108/74 Blood Pressure Location Rt brachial Position Sitting Pulse 63 Pulse Source Pulse Oximeter Pulse Oximetry (%) 97 Oxygen Delivery Method Room Air Intake Visit Reasons: RIGHT L4, L5 TFESI/ishmael from 08/29 Security Agent Required: No Allergies codeine Allergy (Verified 09/19/24 14:12) Rash Penicillins Allergy (Verified 09/19/24 14:12) Rash HPI Comments Details: Shivam presents back to the office today for follow-up, 1 month status post right L4-5 transforaminal epidural steroid injection He endorses 40-50% pain relief with some improvement in function mobility since the injection Was evaluated with neuro spine, he is not interested in surgical intervention at this time. Denies any untoward effects of the injection Pain today 6/10 Has been taking gabapentin, denies any side effects. Interested in dose increase. Prior :Shivam presents back to the office today for follow-up right lower back pain. Recently evaluated by neuro spine, visit note was reviewed. They discussed surgery but ultimately decided that now was not the right time. He was referred back here for repeat L4-5 epidural steroid injection. He continues with right lower back pain with radiation down the right leg to the ankle. Pain today is rated as a 7/10, constant and worse with activity Has been taking naproxen with some relief. Reports methocarbamol has been giving him nightmares so he stopped taking it. Prior: Patient presents back to the office today for follow-up, 1 month status post right L4-5 transforaminal epidural steroid injection He reports 30% improvement in pain, functional mobility since the injection. States no longer having discomfort in his right ankle/Achilles. Continues with right lower back pain radiating down to the calf. Endorses continued tightness in the right hamstring. Taking naproxen and methocarbamol with minimal improvement Pain today is rated as a 6/10 Prior: Patient presents back to the office today for follow-up, review of recent MRI MRI reviewed, results as per below Patient continues with 7/10 back pain with radiation down the right leg to the level of the ankle. Denies red flag symptoms including new loss of bowel, bladder or saddle anesthesia Has been attending physical therapy without improvement of his symptoms Reports over the weekend he was working in the [employer] and exacerbated the pain. Since then it has been more bothersome. Continues with Motrin as needed without improvement of his symptoms Denies new medications, allergies or medical history Prior: Shivam is very pleasant 53 years old gentleman who presents in my office with complains on pain in the lower back with radiation into the right lower extremity all the way to his ankle but not into his toes. Also reports sensation of pins and needles tingling and numbness in the foot. He reports that this pain started 2 years ago. 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 He can not sleep normally he can not do activities of daily living he can not take care of himself but he can not function normally. He is working full-time. He reports that movements aggravate his pain. The pain is most severe in the afternoon at night. The pain is less severe in the middle of the day. In terms of tissue damage he reports his pain as throbbing, stabbing, sharp, pulling, hot burning, hurting, aching sensation. He never had MRI of the lumbar spine but he had an x-ray not available for me today at [facility]. He did not have physical therapy or chiropractic manipulations. He never had any injections. His past medical history significant for headaches fatigue dizziness and fainting history of intermittent chest pain he said that he was investigated by PCP were for chest pain he reports asthma and shortness of breath. He denies any surgery. He denies smoking cigarettes drinking alcohol denies caffeinated beverages but admits to coffee a day he denies recreational drugs. [facility] Surgical History (Updated 12/29/23 @ 13:25 by Stacie Duncan) S/P right inguinal herniorrhaphy S/P left rotator cuff repair S/P left knee arthroscopy S/P right knee arthroscopy Family History (Updated 12/29/23 @ 13:21 by Stacie Duncan) Father Kidney disease Brother Cancer of skin High cholesterol Social History (Reviewed 09/19/24 @ 14:12 by Ghada Mcgrath [facility]) Comment: alcohol intake occasional Patient Tobacco Use Status: Never used Tobacco Review of Systems Const All systems reviewed & are unremarkable except as noted in HPI and below Physical Exam Vital Signs: Last Vital Signs Pulse 63 04/02/25 14:08 BP 108/74 09/19/24 14:08 Pulse Ox 97 09/19/24 14:08 Oxygen Delivery Method Room Air 09/19/24 14:08 BMI result Body Mass Index 29.5 General: awake, alert, oriented. Answers questions appropriately. Fully engaged in examination. Skin: warm, dry, intact HEENT: Normocephalic. Hearing intact. Cardiac: External chest normal in appearance. Respiratory: No cough, audible wheezing or stridor. Abdomen: without gross distension. MS: No obvious swelling or deformities. Neurological: Oriented to person, place, time and situation. Thought process intact. No gait abnormalities appreciated. Psychiatric: Appropriate mood and affect. Good judgment and insight. Results Reviewed Results Reviewed: 01/31/24 MRI OF THE LUMBAR SPINE WITHOUT CONTRAST FINDINGS: There is transitional anatomy. For the purposes of this report, there are 5 nonrib-bearing lumbar-type vertebral bodies and L5 is sacralized, showing rudimentary disc with S1 and pseudoarticulations with the sacrum bilaterally. Please correlate with plain films prior to any percutaneous or surgical intervention. There is disc desiccation and moderate disc volume loss at L1-L2 and L4-L5. Modic type I endplate signal changes on the right side at L4-L5. No additional bone marrow edema. No acute fractures. Conus terminates at the T12-L1 level. Simple right renal cyst for which no further imaging follow-up is warranted. L1-L2: Diffuse annular disc bulge and mild bilateral facet arthropathy. No central canal stenosis. Mild foraminal encroachment bilaterally. L2-L3: Diffuse annular disc bulge and moderate bilateral facet arthropathy and ligamentum flavum thickening. No central canal stenosis. Mild foraminal encroachment bilaterally. L3-L4: Diffuse annular disc bulge and moderate bilateral facet arthropathy and ligamentum flavum thickening. No central canal stenosis. Mild foraminal encroachment bilaterally. L4-L5: There is grade 1 retrolisthesis. Diffuse annular disc bulge that is in part disc osteophyte and severe bilateral facet arthropathy and ligamentum flavum thickening. Findings in concert result in bilateral subarticular zone stenosis with mild mass effect on the traversing L5 nerve roots bilaterally and the right lateral disc osteophyte protrusion results in moderate right-sided foraminal stenosis, likely contacting the extraforaminal right L4 nerve root. L5-S1: Rudimentary disc. Hypertrophic degenerative changes across the L5-S1 pseudoarticulations contact the overlying extraforaminal nerve roots bilaterally. There is no central canal stenosis. IMPRESSION: * There is transitional anatomy. For the purposes of this report, there are 5 nonrib-bearing lumbar-type vertebral bodies and L5 is sacralized, sharing a rudimentary disc with S1 and pseudoarticulations with the sacrum bilaterally. Please correlate with plain films prior to any percutaneous or surgical intervention. * At L4-L5, grade 1 retrolisthesis and multifactorial degenerative changes result in bilateral subarticular zone stenosis with mild mass effect on the traversing L5 nerve roots bilaterally and a right lateral disc osteophyte protrusion results in moderate right-sided foraminal stenosis, likely contacting the extraforaminal right L4 nerve root. Modic type I endplate signal changes at this level on the right side. * At L5-S1, hypertrophic degenerative changes across the L5-S1 pseudoarticulations contact the overlying extraforaminal nerve roots bilaterally. Assessment & Plan Assessment & Plan (1) Disc degeneration, lumbar: Code(s): M51.36 - Other intervertebral disc degeneration, lumbar region Category: Medical (2) Radiculopathy, lumbar region: Code(s): M54.16 - Radiculopathy, lumbar region Category: Medical (3) Chronic pain syndrome: Code(s): G89.4 - Chronic pain syndrome Category: Medical Plan Patient presents back to the office today for follow-up, month s/p right L4-5 TFESI Endorses 40-50% pain relief with improvement in function and mobility. Patient is not interested in returning to [facility] to discuss surgical options at this time. Discussed options for treatment including diagnostic interventional testing, epidural steroid injections, peripheral nerve stimulation with Sprint, RFA and more permanent neuromodulation. Informational pamphlets provided. Patient will consider [place] [facility] SCS trial. He is aware this would require mental health clearance before submitting to insurance for auth. Advantage point information provided to patient. He will call the office if he decides to proceed with SCS trial. Will increase Gabapentin to 300mg po TID. Patient advised on cautions for use He was advised that we can repeat fluoroscopy guided right L4-5 transforaminal epidural steroid injection with local anesthetic after 4 months if pain returns. All questions and concerns have been answered and patient agrees with the plan. Follow up when pain returns, sooner if needed. Medications: Changed From gabapentin May cause drowsiness, no driving while taking this medication. 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 100 mg PO TID 90 caps 3RF To gabapentin May cause drowsiness, no driving while taking this medication. 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 300 mg PO TID 90 caps 3RF Coding Level of Care Code Est Pt Level 3 (47690) Complex EM visit Add On G2211 Diagnoses Disc degeneration, lumbar M51.36 Radiculopathy, lumbar region M54.16 Chronic pain syndrome G89.4
--- OUTSIDE RECORDS SUMMARY | 2024-09-19 16:48 | XMS_ITS ---
Author Name [facility] Organization Unknown Care Team Organization Name Specialty Phone Email Start Date End Da te [employer] 07/07/2022 0 02/06/2024
== END 2024-09-19 14:46 | disposition home or self-care (01) ==
LOC: HO.PMC 14:02
PROVIDERS: PCP Internal Medicine; Visit Provider Registered Nurse Emergency
DX: M51.369 Other intervertebral disc degeneration, lumbar region without mention of lumbar back pain or lower extremity pain (principal); M54.16 Radiculopathy, lumbar region; G89.4 Chronic pain syndrome
CPT/HCPCS: 99213

== ENCOUNTER 2025-01-08 06:05 | Outpatient (REF) | payer BC, SELFPAY ==
--- NOTE | ~2025-01-08 | FL_ITS ---
EXAMINATION: FL GUIDANCE ONLY HISTORY: M54.16 - Radiculopathy, lumbar region COMPARISON: None available. TECHNIQUE: Fluoroscopy time: 0.4 minutes. Cumulative Dose: 7.16 mGy. DAP: 0.0735 mGym2 Images: 3. FINDINGS: Fluoroscopic spot films of the lumbar spine demonstrate a needle and contrast material inferior to the right L4 pedicle. FL/FL guidance in treatment room IMPRESSION: Fluoroscopy during procedure. Please see procedure report for additional information. Electronically signed by: Octaviano Franco MD 01/08/2025 09:51 AM EDT
== END 2025-01-08 06:06 | disposition home or self-care (01) ==
LOC: CF 06:05
PROVIDERS: Visit Provider Anesthesiology
DX: M51.16 Intervertebral disc disorders with radiculopathy, lumbar region (principal); G89.4 Chronic pain syndrome
CPT/HCPCS: 64483; J2003; J3301; Q9967

== ENCOUNTER 2025-01-08 07:32 | Outpatient (AMB) | payer BC, SELFPAY ==
--- NOTE | 2025-01-08 07:37 | A.OFFVIS_ITS ---
Vital Signs 01/08/25 07:38 Weight 195 lb BP 117/74 Blood Pressure Location Lt brachial Position Sitting Respiration 18 Pulse 56 Pulse Source Pulse Oximeter Pulse Oximetry (%) 97 Oxygen Delivery Method Room Air Intake Visit Reasons: RIGHT L4-L5 TFESI [employer] Required: No Allergies codeine Allergy (Verified 01/08/25 07:38) Rash Penicillins Allergy (Verified 01/08/25 07:38) Rash PFSH Surgical History (Updated 12/29/23 @ 13:25 by Stacie Duncan) S/P right inguinal herniorrhaphy S/P left rotator cuff repair S/P left knee arthroscopy S/P right knee arthroscopy Family History (Updated 12/29/23 @ 13:21 by Stacie Duncan) Father Kidney disease Brother Cancer of skin High cholesterol Social History Comment: alcohol intake occasional Patient Tobacco Use Status: Never used Tobacco Physical Exam Vital Signs: Last Vital Signs Pulse 56 01/08/25 07:38 Resp 18 01/08/25 07:38 BP 117/74 01/08/25 07:38 Pulse Ox 97 01/08/25 07:38 Oxygen Delivery Method Room Air 01/08/25 07:38 Assessment & Plan Assessment & Plan (1) Radiculopathy, lumbar region: Code(s): M54.16 - Radiculopathy, lumbar region Category: Medical (2) Disc degeneration, lumbar: Code(s): M51.36 - Other intervertebral disc degeneration, lumbar region Category: Medical (3) Chronic pain syndrome: Code(s): G89.4 - Chronic pain syndrome Category: Medical Plan Transforaminal right L4-5 epidural steroid injection Informed consent was thoroughly explained to the patient before the procedure.? The patient came to the operating room.? He was positioned prone on operating table with a pillow under his abdomen.? Time-out was performed delineating correct site and side of the procedure, nature of the injection, name and date of of the patient. The lower back of the patient was prepped with ChloraPrep and draped with sterile utility towels.? C-arm was brought over the operating field, transitional anatomy was noted, the L4 vertebra was located county down from the 1st [id number] vertebra, and after the sq picture of L4 vertebra was demonstrated on the screen.? The right side was chosen as the side of the injection.? Tilting machine ipsilateral to the right at the level of L4 the most prominent picture of the right pedicle was obtained on the screen.? 3 mm below the level of the lowest point of the pedicle projection to the skin small amount of lidocaine 1% 3-4 cc was injected to anesthetize the skin.? After that 5 in 22 gauge Quincke point needle was inserted through the skin wheal and was advanced toward the right L4-5 foramina on anterior posterior , lateral and oblique views intermittently.? When needle entered foramina injection of the contrast performed demonstrating epidural and perineural spread of the contrast. No intrathecal and no intravascular spread of the contrast was noted on the screen. No intravascular nor intrathecal spread of the contrast was noted. After that preservative-free lidocaine 1% 3 mL mixed with Kenalog 40 mg was injected into the needle. Upon completion of the injection needle was withdrawn sterile Band- Aids were applied Patient tolerated procedure well he was taken outside of the operating room where he recovered uneventfully.? Orders: Orders FL guidance in treatment room Today M54.16 - Radiculopathy, lumbar region Coding Level of Care Code Procedure Only Diagnoses Radiculopathy, lumbar region M54.16 Disc degeneration, lumbar M51.36 Chronic pain syndrome G89.4
[2025-01-08 07:38] VITALS: BP 117/74; PULSE 56; RESP 18; O2SAT 97
== END 2025-01-08 08:24 | disposition home or self-care (01) ==
LOC: HO.PMCPRC 07:32
PROVIDERS: PCP Internal Medicine; Visit Provider Anesthesiology
DX: M54.16 Radiculopathy, lumbar region (principal); M51.369 Other intervertebral disc degeneration, lumbar region without mention of lumbar back pain or lower extremity pain; G89.4 Chronic pain syndrome
CPT/HCPCS: 64483

== ENCOUNTER 2025-02-08 09:25 | Outpatient (AMB) | payer BC, SELFPAY ==
[2025-02-08 09:29] VITALS: BP 122/75; PULSE 66; RESP 16; O2SAT 99; BMI 28.4
--- NOTE | 2025-02-08 09:29 | MHC.OFFVIS ---
Vital Signs 02/08/25 09:29 Height 5 ft 9 in Weight 192 lb BMI 28.4 BP 122/75 Blood Pressure Location Rt brachial Position Sitting Respiration 16 Pulse 66 Pulse Source Pulse Oximeter Pulse Oximetry (%) 99 Oxygen Delivery Method Room Air Intake Visit Reasons: S/P RIGHT L4- L5 TFESI 01/08/25 Recovery Room Nurse Required: No Accompanied by: Self / Same As Patient Allergies codeine Allergy (Verified 02/08/25 09:31) Rash Penicillins Allergy (Verified 02/08/25 09:31) Rash HPI Comments Details: The patient is a 54-year-old male presenting with chronic low back pain. The pain has persisted despite a right L4-5 transforaminal epidural steroid injection performed one month ago, which reduced the pain from an 8/10 to a 6 /10. The patient reports engaging in stretching and strengthening exercises, which have been beneficial. 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 Prior to this, the pain had decreased to a 5/10 and was manageable, although still present during activities. The patient uses gabapentin at night due to its sedative effects and has inquired about using ibuprofen during the day for additional pain relief. Lidocaine patches have been effective during long drives, and the patient is interested in obtaining a prescription for them. The patient is actively trying to avoid surgery, having undergone multiple surgeries in the past, and is focused on non-surgical management strategies. - Pain onset: Chronic, persistent despite intervention - Pain quality: Rated 6/10, previously 8/10 - Location: Lower back, exacerbated by certain activities - Relieving factors: Stretching, strengthening exercises, gabapentin, lidocaine patches - Exacerbating factors: Work activities involving twisting, lifting, bending - Affect: Pain impacts daily activities but is manageable with current interventions - Analgesia: Gabapentin at night, considering ibuprofen during the day, lidocaine patches for specific situations - Adverse Effects: Gabapentin causes sedation, limiting daytime use - Activities of Daily Living: Pain is manageable, allowing for work and exercise with caution - Aberrant Drug Related Behaviors: None reported [facility]LY [facility], [facility] Surgical History (Updated 12/29/23 @ 13:25 by Stacie Duncan) S/P right inguinal herniorrhaphy S/P left rotator cuff repair S/P left knee arthroscopy S/P right knee arthroscopy Family History (Updated 12/29/23 @ 13:21 by Stacie Duncan) Father Kidney disease Brother Cancer of skin High cholesterol Social History Comment: alcohol intake occasional Patient Tobacco Use Status: Never used Tobacco Review of Systems Const Details: - Musculoskeletal: Reports chronic low back pain, exacerbated by certain activities - Neurological: Denies any new neurological symptoms Physical Exam Exam Exam: General: awake, alert, oriented. Answers questions appropriately. Fully engaged in examination. Skin: warm, dry, intact HEENT: Normocephalic. Hearing intact. Cardiac: External chest normal in appearance. Respiratory: No cough, audible wheezing or stridor. Abdomen: without gross distension. MS: No obvious swelling or deformities. Neurological: Oriented to person, place, time and situation. Thought process intact. No gait abnormalities appreciated. Psychiatric: Appropriate mood and affect. Good judgment and insight. Vital Signs: Last Vital Signs Pulse 66 02/08/25 09:29 Resp 16 02/08/25 09:29 BP 122/75 02/08/25 09:29 Pulse Ox 99 02/08/25 09:29 Oxygen Delivery Method Room Air 02/08/25 09:29 BMI result Body Mass Index 28.4 Results Reviewed Results Reviewed: 01/31/24 MRI OF THE LUMBAR SPINE WITHOUT CONTRAST FINDINGS: There is transitional anatomy. For the purposes of this report, there are 5 nonrib-bearing lumbar-type vertebral bodies and L5 is sacralized, showing rudimentary disc with S1 and pseudoarticulations with the sacrum bilaterally. Please correlate with plain films prior to any percutaneous or surgical intervention. There is disc desiccation and moderate disc volume loss at L1-L2 and L4-L5. Modic type I endplate signal changes on the right side at L4-L5. No additional bone marrow edema. No acute fractures. Conus terminates at the T12-L1 level. Simple right renal cyst for which no further imaging follow-up is warranted. L1-L2: Diffuse annular disc bulge and mild bilateral facet arthropathy. No central canal stenosis. Mild foraminal encroachment bilaterally. L2-L3: Diffuse annular disc bulge and moderate bilateral facet arthropathy and ligamentum flavum thickening. No central canal stenosis. Mild foraminal encroachment bilaterally. L3-L4: Diffuse annular disc bulge and moderate bilateral facet arthropathy and ligamentum flavum thickening. No central canal stenosis. Mild foraminal encroachment bilaterally. L4-L5: There is grade 1 retrolisthesis. Diffuse annular disc bulge that is in part disc osteophyte and severe bilateral facet arthropathy and ligamentum flavum thickening. Findings in concert result in bilateral subarticular zone stenosis with mild mass effect on the traversing L5 nerve roots bilaterally and the right lateral disc osteophyte protrusion results in moderate right-sided foraminal stenosis, likely contacting the extraforaminal right L4 nerve root. L5-S1: Rudimentary disc. Hypertrophic degenerative changes across the L5-S1 pseudoarticulations contact the overlying extraforaminal nerve roots bilaterally. There is no central canal stenosis. IMPRESSION: * There is transitional anatomy. For the purposes of this report, there are 5 nonrib-bearing lumbar-type vertebral bodies and L5 is sacralized, sharing a rudimentary disc with S1 and pseudoarticulations with the sacrum bilaterally. Please correlate with plain films prior to any percutaneous or surgical intervention. * At L4-L5, grade 1 retrolisthesis and multifactorial degenerative changes result in bilateral subarticular zone stenosis with mild mass effect on the traversing L5 nerve roots bilaterally and a right lateral disc osteophyte protrusion results in moderate right-sided foraminal stenosis, likely contacting the extraforaminal right L4 nerve root. Modic type I endplate signal changes at this level on the right side. * At L5-S1, hypertrophic degenerative changes across the L5-S1 pseudoarticulations contact the overlying extraforaminal nerve roots bilaterally. Assessment & Plan Assessment & Plan (1) Radiculopathy, lumbar region: Code(s): M54.16 - Radiculopathy, lumbar region Category: Medical (2) Disc degeneration, lumbar: Code(s): M51.36 - Other intervertebral disc degeneration, lumbar region Category: Medical (3) Chronic pain syndrome: Code(s): G89.4 - Chronic pain syndrome Category: Medical Plan The patient will continue with current pain management strategies, including the use of gabapentin at night and considering ibuprofen during the day for additional relief. A prescription for lidocaine patches will be provided, although insurance coverage may vary. The patient is advised to avoid activities that exacerbate the pain, such as twisting, lifting, and bending at work. The patient is encouraged to continue stretching and strengthening exercises to maintain pain relief and improve function. Follow-up for another epidural steroid injection will be considered if pain worsens, with a preference for extending the interval between injections to six months if possible. Patient was informed and verbally consented to the use of an ambient scribe for clinic note documentation during this visit. Medications: New ibuprofen Take with food. Do not take with any other nonsteroidal anti-inflammatory medications. 600 mg PO TID 90 tabs 3RF lidocaine 5% leave on most painful area for up to 12 hrs 1 patch topical DAILY 30 ea 3RF Patient Instructions: - Continue taking gabapentin at night and consider ibuprofen during the day for pain relief. - Use lidocaine patches as prescribed, and check with insurance for coverage. - Avoid activities that involve twisting, lifting, and bending to prevent pain exacerbation. - Continue stretching and strengthening exercises to help manage pain. - Schedule a follow-up if pain worsens or for future epidural steroid injections. Coding Level of Care Code Est Pt Level 3 (34409) Complex EM visit Add On G2211 Diagnoses Radiculopathy, lumbar region M54.16 Disc degeneration, lumbar M51.36 Chronic pain syndrome G89.4
== END 2025-02-08 09:58 | disposition home or self-care (01) ==
LOC: HO.PMC 09:26
PROVIDERS: PCP Internal Medicine; Visit Provider Registered Nurse Emergency
DX: M54.16 Radiculopathy, lumbar region (principal); M51.369 Other intervertebral disc degeneration, lumbar region without mention of lumbar back pain or lower extremity pain; G89.4 Chronic pain syndrome
CPT/HCPCS: 99213